=== PATIENT | female | born 1955 | race Caucasian/White ===

== ENCOUNTER → 2024-01-21 10:36 | Outpatient (REF) | payer MEDICARE, OTHER, SELFPAY | LOC: WDC 10:36 | PROVIDERS: ATTENDING PHYSICIAN Family Medicine | DX: Z12.31 Encounter for screening mammogram for malignant neoplasm of breast (principal) | CPT/HCPCS: 77063; 77067 ==

== ENCOUNTER → 2024-09-10 11:03 | Outpatient (REF) | payer MEDICARE, OTHER, SELFPAY | LOC: PAVMRI 11:03 | PROVIDERS: ATTENDING PHYSICIAN Physical Medicine & Rehabilitation; FAMILY PHYSICIAN Family Medicine | DX: M54.17 Radiculopathy, lumbosacral region (principal) | CPT/HCPCS: 72158; A9575 ==

== ENCOUNTER → 2024-10-08 08:58 | Outpatient (REF) | payer MEDICARE, OTHER, SELFPAY | LOC: PAVMRI 08:58 | PROVIDERS: ATTENDING PHYSICIAN Internal Medicine; FAMILY PHYSICIAN Family Medicine | DX: K75.89 Other specified inflammatory liver diseases (principal); K86.2 Cyst of pancreas | CPT/HCPCS: 74183; A9575 ==

== ENCOUNTER → 2025-02-04 15:13 | Outpatient (REF) | payer MEDICARE, OTHER, SELFPAY | LOC: WDC 15:13 | PROVIDERS: ATTENDING PHYSICIAN Family Medicine | DX: Z12.31 Encounter for screening mammogram for malignant neoplasm of breast (principal) | CPT/HCPCS: 77063; 77067 ==